=== PATIENT | female | born 1975 | race Caucasian/White ===

== ENCOUNTER 2017-04-10 02:51 | Emergency (ER) | payer MEDICAID ==
[~2017-04-10] VITALS: Ht 172.7 cm; Wt 65.6 kg
[~2017-04-10 02:51] MED LIST: ALBU18HF INH; ALPR-475 PO; AMIT10TA PO; BETA1CAP PO; CALC300T5 PO; FLUT1DIS IH; HYDR-3237 PO; LEVO112T41 PO; LEVO88TA43 PO; LORA10TA72 PO; MULT-224 PO; OXYC5CAP2 PO; PARO20TA98 PO; PARO40TA61 PO; PSEU120T9 PO
[2017-04-10] MEDS ORDERED: SODIUM CHLORIDE 0.9% 1,000 ML IV ONE (03:13)
[2017-04-10 03:29] LABS: HEMATOCRIT 38.4 % (34.6-47.8); WHITE BLOOD COUNT 10.8 x10^3/uL (3.4-10)
[2017-04-10] MEDS ORDERED: MORPHINE SULFATE 4 MG/ML, 1ML IVPush PRN (03:30)
[2017-04-10] MEDS ORDERED: KETOROLAC 30 MG/1 ML IVPush ONE (03:30)
[2017-04-10] MEDS ORDERED: ONDANSETRON 2MG/ML, 2ML IVPush ONE (03:30)
[2017-04-10] MEDS ORDERED: SODIUM CHLORIDE FLUSH 10ML SYR IVF ONE (03:30)
[2017-04-10 03:40] LABS: ASPARTATE AMINO TRANSFERASE 26 U/L (15-37); BLOOD UREA NITROGEN 17 mg/dL (7-18)
[2017-04-10] MEDS ORDERED: KETOROLAC 30 MG/1 ML ONE (03:49)
[2017-04-10] MEDS ORDERED: ONDANSETRON 2MG/ML, 2ML ONE (03:49)
[2017-04-10 04:55] VITALS: BP 128/95
== END 2017-04-10 05:27 ==
LOC: ED 05:00
DX: N20.1 Calculus of ureter (principal); R31.9 Hematuria, unspecified; R10.31 Right lower quadrant pain; J45.909 Unspecified asthma, uncomplicated; Z85.850 Personal history of malignant neoplasm of thyroid; E89.0 Postprocedural hypothyroidism
CPT/HCPCS: 36415; 74176; 80053; 81001; 83690; 84703; 85025; 87086; 96361; 96374; 96375; 99285; J1885; J2405; J7030